=== PATIENT | male | born 1985 | race Caucasian/White ===

== ENCOUNTER → 2018-06-07 | Outpatient (CLI) | payer BC | LOC: BHSO 14:59 | DX: F41.1 Generalized anxiety disorder (principal) ==

== ENCOUNTER → 2018-06-28 | Outpatient (CLI) | payer BC | LOC: BHSO 13:52 | DX: F41.1 Generalized anxiety disorder (principal) ==

== ENCOUNTER → 2018-08-04 | Outpatient (CLI) | payer BC | LOC: BHSO 14:58 | DX: F41.1 Generalized anxiety disorder (principal) ==

== ENCOUNTER → 2018-08-25 | Outpatient (CLI) | payer BC | LOC: BHSO 15:01 | DX: F41.1 Generalized anxiety disorder (principal) ==

== ENCOUNTER → 2018-10-04 | Outpatient (CLI) | payer BC | LOC: BHSO 09:06 | DX: F41.1 Generalized anxiety disorder (principal) ==

== ENCOUNTER → 2018-11-15 | Outpatient (CLI) | payer BC | LOC: BHSO 15:00 | DX: F41.1 Generalized anxiety disorder (principal) ==